=== PATIENT | male | born 1960 | race Caucasian/White ===

== ENCOUNTER 2021-03-12 07:21 | Emergency (ER) | payer MEDICAID ==
[~2021-03-12] VITALS: Ht 167.6 cm; Wt 77.1 kg
[2021-03-12 07:23] VITALS: BP 128/98
[2021-03-12] MEDS ORDERED: methylPREDNISolone SOD SUCC 125 MG/2 ML VL IM ONE (08:30)
[2021-03-12] MEDS ORDERED: EPINEPHrine HCL 1 MG/1 ML AMP SC ONE (08:45)
== END 2021-03-12 09:46 | disposition home or self-care (01) ==
LOC: ER 07:21
DX: T78.1XXA Other adverse food reactions, not elsewhere classified, initial encounter (principal); I10 Essential (primary) hypertension; X58.XXXA Exposure to other specified factors, initial encounter
CPT/HCPCS: 96372; 99284; J0171; J2930

== ENCOUNTER 2024-11-03 08:33 | Inpatient (IN) | payer MEDICAID ==
[~2024-11-03] VITALS: Ht 165.1 cm; Wt 64.0 kg
[2024-11-03] VITALS (13 sets, daily range): BP systolic 125–160; BP diastolic 70–95; PULSE 55–76; RESP 12–21; TEMP 98.2–98.3; O2SAT 95–100
[2024-11-03] MEDS: IODIXANOL 320MG/ML 100ML BTL IV ONE (08:51)
[2024-11-03] MEDS: HEPARIN SODIUM (PORCINE) 5000 UNITS/ML 1ML VIAL ONE (08:59)
[2024-11-03] MEDS ORDERED: SODIUM CHLORIDE 0.9% 1,000 ML IV ONE (09:00)
[2024-11-03] MEDS: HEPARIN SODIUM (PORCINE) 5000 UNITS/ML 1ML VIAL IV ONE (09:01)
--- NOTE | 2024-11-03 09:04 | ED.PDOC ---
HPI Comments 64 Y M with PMHX of HTN and HLD presents to the ED with CC of chest pain. Patient states, that he started experiencing sudden chest pain at 0200 this morning 11/03/24. Patient relays, that his CP is substernal and radiates to his jaw, bilateral arms, and neck. Patient smokes tobacco, denies ETOH consumption, or illicit drug use. Patient denies fever, shortness of breath, or N/V/D. Chief Complaint: Chest Pain Time Seen by MD: 08:40 Primary Care Provider: ? Reviewed Notes: Nurses Notes, Medications, Allergies Allergies: Coded Allergies: NO KNOWN ALLERGIES (Unverified , 03/12/21) Information Source: Patient Mode of Arrival: Ambulatory Severity: Moderate Timing: Hours Duration: Since onset Prehospital treatment: None Location: Substernal Radiation: Neck, Jaw, Arm (R), Arm (L) Onset: At Rest Cardiac Risk Factors: Smoker, HTN PE Risk Factors: None History of: None Associated Signs and Symptoms: None Past Medical History PAST MEDICAL HISTORY: HTN Surgical History: Denies all surgeries Family History Family History: Reviewed,noncontributory to illness Social History Smoker: Non-Smoker Lives In: Home Constitutional: denies: chills, diaphoresis, fatigue, fever, malaise, sweats, weakness, others EENTM: denies: blurred vision, double vision, ear bleeding, ear discharge, ear drainage, ear pain, ear ringing, eye pain, eye redness, hearing loss, mouth pain, mouth swelling, nasal discharge, nose bleeding, nose congestion, nose pain, photophobia, tearing, throat pain, throat swelling, voice changes, others Cardiovascular: reports: chest pain, others (HAWA Arm Pain); denies: dizzy spells, diaphoresis, Dyspnea on exertion, edema, irregular heart beat, left arm pain, lightheadedness, palpitations, PND, syncope Gastrointestinal: denies: abdomen distended, abdominal pain, blood streaked bowels, constipated, diarrhea, dysphagia, difficulty swallowing, hematemesis, melena, nausea, poor appetite, poor fluid intake, rectal bleeding, rectal pain, vomiting, others Genitourinary: denies: burning, dysuria, flank pain, frequency, hematuria, incontinence, penile discharge, penile sore, pain, testicle pain, testicle swelling, urgency, others Neurological: reports: headache; denies: dizziness, fainting, left sided numbness, left sided weakness, numbness, paresthesia, pre-existing deficit, right sided numbness, right sided weakness, seizure, speech problems, tingling, tremors, weakness, others Musculoskeletal: denies: back pain, gout, joint pain, joint swelling, muscle pain, muscle stiffness, neck pain, others Integumetry: denies: bruises, change in color, change in hair/nails, dryness, laceration, lesions, lumps, rash, wounds, others Allergic/Immunocompromised: denies: Difficulty Healing, Frequent Infections, Hives, Itching, others Hematologic/Lymphatic: denies: anemia, blood clots, easy bleeding, easy bruising, swollen glands, others Endocrine: denies: excessive hunger, excessive sweating, excessive thirst, excessive urination, flushing, intolerance to cold, intolerance to heat, unexplained weight gain, unexplained weight loss, others Psychiatric: denies: anxiety, bipolar disorder, depression, hopeless, panic disorder, schizophrenia, sleepless, suicidal, others All Other Systems: Reviewed and Negative Physical Exam General Appearance: Moderate Distress, Normal HEENT: Normal ENT Inspection, Pharynx Normal, TMs Normal Neck: Full Range of Motion, Non-Tender, Normal, Normal Inspection Respiratory: Chest Non-Tender, Lungs Clear, No Accessory Muscle Use, No Respiratory Distress, Normal Breath Sounds Cardiovascular: No Edema, No JVD, No Murmur, No Gallop, Normal Peripheral Pulses, Regular Rate/Rhythm Breast Exam: Deferred Gastrointestinal: No Organomegaly, Non Tender, No Pulsatile Mass, Normal Bowel Sounds, Soft Genitalia: Deferred Pelvic: Deferred Rectal: Deferred Extremities: No calf tenderness, Normal capillary refill, Normal inspection, Normal range of motion, Non-tender, No pedal edema Musculoskeletal : Apperance: Normal Neurologic: Alert, principal network architect II-XII nml as Tested, No Motor Deficits, Normal Affect, Normal Mood, No Sensory Deficits Cerebellar Function: NOT DONE Reflexes: NOT DONE Skin: Dry, Normal Color, Warm Peripheral Pulses: 3+ Radial (R), 3+ Radial (L) Lymphatic: No Adenopathy Was a procedure done? Was a procedure done?: No CP Differential Dx Differential Diagnosis: A-fib, A-Flutter, Angina, Anxiety / Panic Attack, Atrial Dysrhythmia, Electrolyte Disorder, CT, Other (STEMI) X-Ray, Labs, Meds, VS Vital Signs Date Time Temp Pulse Resp B/P (MAP) Pulse Ox O2 Delivery O2 Flow Rate FiO2 11/03/24 09:08 76 21 99 Room Air* 0 21 11/03/24 09:08 76 21 179/100 (126) 99 11/03/24 08:43 98.6 75 18 139/101 (114) 98 11/03/24 08:40 65 Lab Test 11/03/24 08:51 Range/Units White Blood Count 11.0 H 4.4-10.8 10^3/uL Red Blood Count 5.98 H 4.5-5.90 10^6/uL Hemoglobin 18.5 H 13.5-17.5 g/dL Hematocrit 54.6 H 41.0-53.0 % Mean Corpuscular Volume 91.3 80.0-100.0 fL Mean Corpuscular Hemoglobin 31.0 28.0-32.0 pg Mean Corpuscular Hemoglobin Concent 33.9 32.0-36.0 g/dL Red Cell Distribution Width 13.7 11.8-14.3 % Platelet Count 245 140-450 10^3/uL Mean Platelet Volume 9.0 6.9-10.8 fL Neutrophils (%) (Auto) 71.7 37.0-80.0 % Lymphocytes (%) (Auto) 19.9 10.0-50.0 % Monocytes (%) (Auto) 6.9 0.0-12.0 % Eosinophils (%) (Auto) 0.8 0.0-7.0 % Basophils (%) (Auto) 0.7 0.0-2.0 % Neutrophils # (Auto) 7.9 1.6-8.6 10 ^3/uL Lymphocytes # (Auto) 2.2 0.4-5.4 10 ^3/uL Monocytes # (Auto) 0.8 0-1.3 10 ^3/uL Eosinophils # (Auto) 0.1 0-0.8 10 ^3/uL Basophils # (Auto) 0.1 0-0.2 10 ^3/uL Nucleated Red Blood Cells 0.2 % Prothrombin Time Pending Prothrombin Time INR Pending Activated Partial Thromboplast Time Pending Sodium Level 136 136-145 mmol/L Potassium Level Pending Chloride Level 104 98-107 mmol/L Carbon Dioxide Level 27 20-31 mmol/L Anion Gap 5 5-15 Blood Urea Nitrogen Pending Creatinine 1.16 0.700-1.30 mg/dL Glomerular Filtration Rate Calc 71 >90 mL/min BUN/Creatinine Ratio Pending Serum Glucose 121 H 74-106 mg/dL Calcium Level 10.1 8.7-10.4 mg/dL Total Bilirubin 0.7 0.2-1.0 mg/dL Aspartate Amino Transferase (AST) 153 H 13-40 U/L Alanine Aminotransferase (ALT) Pending Alkaline Phosphatase 79 46-116 U/L Troponin I High Sensitivity 9077 *H </=54 ng/L Total Protein 7.9 5.7-8.2 g/dL Albumin Pending Current Medications Medications (Trade) Dose Ordered Sig/Bridgette Route Start Time Stop Time Status Last Admin Heparin Sodium (Porcine) 5,000 units ONCE ONCE IV 11/03/24 09:00 11/03/24 09:01 DC 11/03/24 09:01 [place] [id number] Ph: [phone] DIAGNOSTIC IMAGING Diagnostic Imaging Report : [id number] Signed PATIENT: SWAPNA COLUNGA ACCT: [id number] UNIT: [id number] : 1960 LOC: ER ROOM / BED: / AGE / SEX: 64 / M ADM STATUS: REG ER SERVICE ORDERING PHYSICIAN: MO BANDA MD PROCEDURE(s): CXR1 - CHEST XRAY 1 VIEW REASON: CHEST PAIN ORDER NUMBER(s): [id number], ACCESSION NUMBER(s): [id number] XY CHEST XRAY 1 VIEW, HISTORY: CHEST PAIN COMPARISON: None None TECHNICAL DATA: 1 view of the chest was obtained. FINDINGS: Lines and tubes: None Cardiomediastinal silhouette: normal Pulmonary vasculature: normal Lung expansion: low Lung airspace: normal Lung interstitium: normal Pleura: normal Pneumothorax: no Bones: Unremarkable Other: no IMPRESSION: Hypoexpanded lungs. ATED BY: PEE KAT MD DICTATED DATE/TIME: 11/03/24912 SIGNED BY: PEE KAT MD SIGNED DATE/TIME: 11/03/24 0913 CC: Patient alert. Complaining of chest pain. EKG does show STEMI. Vitals stable. Was given heparin. Cardiology consult dictation. Was taken to the senior laboratory technician. Continues to smoke cigarettes. Counseled patient on effects of smoking cigarettes. WBC slightly elevated. Hemoglobin elevated. Blood pressure elevated. Explained to the patient. Time of 1ST Reevaluation: 09:20 Reevaluation 1ST: Unchanged Patient Education/Counseling: Diagnosis, Treatment Family Education/Counseling: No Family Present Departure 1 Departure Time of Disposition: :23 Impression: Primary Impression: STEMI (ST elevation myocardial infarction) Qualified Codes: I21.3 - ST elevation (STEMI) myocardial infarction of unspecified site Disposition: ADMITTED INPATIENT Admit to: Med Surg Condition: Guarded Critical Care Note Critical Care Time?: Yes (45 min-critical care time only) Stability Stability form required: No Heart Score Heart Score: Heart Score Response (Comments) Value History Highly Suspicious [address]-Deviation 2 Age 45-64 1 Risk Factors 1 or 2 risk factors 1 Troponin N/A 0 Total 6 I personally scribed for MO BANDA MD ([email or web address]) on 11/03/24 at 09:04. Electronically submitted by Elsa Arias ([email or web address]). I personally scribed for MO BANDA MD ([email or web address]) on 11/03/24 at 09:51. Electronically submitted by Elsa Arias ([email or web address]). MO BANDA MD Nov 03, 2024 09:04
[2024-11-03 09:07] LABS: Basophils # (auto) 0.1 10 ^3/uL (0-0.2); Eosinophils # (auto) 0.1 10 ^3/uL (0-0.8); Lymphocytes # (auto) 2.2 10 ^3/uL (0.4-5.4); Monocytes # (auto) 0.8 10 ^3/uL (0-1.3); Neutrophils # (auto) 7.9 10 ^3/uL (1.6-8.6)
[2024-11-03 09:08] LABS: Basophils % (auto) 0.7 % (0.0-2.0); Eosinophils % (auto) 0.8 % (0.0-7.0); Hematocrit 54.6 % (41.0-53.0); Hemoglobin 18.5 g/dL (13.5-17.5); Lymphocytes % (auto) 19.9 % (10.0-50.0); Mean Corpuscular Hgb Conc. 33.9 g/dL (32.0-36.0); Mean Corpuscular Volume 91.3 fL (80.0-100.0); Monocytes % (auto) 6.9 % (0.0-12.0); Neutrophils % (auto) 71.7 % (37.0-80.0); Nucleated Red Blood Cells % 0.2 %; Platelet Count (auto) 245 10^3/uL (140-450); Red Blood Cells 5.98 10^6/uL (4.5-5.90); Red Cell Distribution Width 13.7 % (11.8-14.3)
[2024-11-03] MEDS: MIDAZOLAM HCL 2MG/2ML 2ml VIAL (1mg/ml) ONE (09:09)
[2024-11-03] MEDS: NITROGLYCERIN 50MG/250ML 250 ML IV ONE (09:09)
[2024-11-03] MEDS: VERAPAMIL 2.5MG/ML INJ 2ML VIAL IV ONE (09:09)
[2024-11-03] MEDS: LIDOCAINE 2%HCL (LOCAL ANESTH.) INJ 20ML MDV ONE (09:09)
[2024-11-03] MEDS: ANGIOMAX 250 MG VIAL IV ONE (09:09)
[2024-11-03] MEDS: fentaNYL CITRATE 100 MCG/2 ML VL ONE (09:09)
[2024-11-03] MEDS: SODIUM CHL 0.9% 50 ML ONE (09:09)
--- NOTE | 2024-11-03 09:15 | DVH ---
XY CHEST XRAY 1 VIEW, HISTORY: CHEST PAIN COMPARISON: None None TECHNICAL DATA: 1 view of the chest was obtained. FINDINGS: Lines and tubes: None Cardiomediastinal silhouette: normal Pulmonary vasculature: normal Lung expansion: low Lung airspace: normal Lung interstitium: normal Pleura: normal Pneumothorax: no Bones: Unremarkable Other: no IMPRESSION: Hypoexpanded lungs.
[2024-11-03 09:24] LABS: Alkaline Phosphatase 79 U/L (46-116); Anion Gap 5 (5-15); Calcium 10.1 mg/dL (8.7-10.4); Carbon Dioxide 27 mmol/L (20-31); Chloride 104 mmol/L (98-107); Sodium 136 mmol/L (136-145)
[2024-11-03 09:25] LABS: Bilirubin, Total 0.7 mg/dL (0.2-1.0); Total Protein 7.9 g/dL (5.7-8.2)
[2024-11-03 09:41] LABS: Aspartate Aminotransferase 153 U/L (13-40); Glucose 121 mg/dL (74-106)
--- NOTE | 2024-11-03 10:13 | DVHINCON2 ---
Date of service: Nov 03, 2024 History of Present Illness 64 yo M with HTN, HL, tobacco came in for crushing chest pain since 2AM. he denies a hx of cad or chf. ER MD sent me ecg and i told him to call code stemi f or anterior wall [place] with septal infarct. pt seen STAT in ER with team . pt chest pain improved with EMS Past Medical History reviewed Allergies: Coded Allergies: NO KNOWN ALLERGIES (Unverified , 03/12/21) Review of Systems +chest pain +sob +nausea +diaphoresis Vital Signs Vital Signs Date Time Temp Pulse Resp B/P (MAP) Pulse Ox O2 Delivery O2 Flow Rate FiO2 11/03/24 09:08 76 21 99 Room Air* 0 21 11/03/24 09:08 179/100 (126) 11/03/24 08:43 98.6 Physical Exam no severe distress nad s1 s2 rrr ctab soft nt/nd no edema Labs/Diagnostic Data Labs Test 11/03/24 08:51 Range/Units White Blood Count 11.0 H 4.4-10.8 10^3/uL Red Blood Count 5.98 H 4.5-5.90 10^6/uL Hemoglobin 18.5 H 13.5-17.5 g/dL Hematocrit 54.6 H 41.0-53.0 % Mean Corpuscular Volume 91.3 80.0-100.0 fL Mean Corpuscular Hemoglobin 31.0 28.0-32.0 pg Mean Corpuscular Hemoglobin Concent 33.9 32.0-36.0 g/dL Red Cell Distribution Width 13.7 11.8-14.3 % Platelet Count 245 140-450 10^3/uL Mean Platelet Volume 9.0 6.9-10.8 fL Neutrophils (%) (Auto) 71.7 37.0-80.0 % Lymphocytes (%) (Auto) 19.9 10.0-50.0 % Monocytes (%) (Auto) 6.9 0.0-12.0 % Eosinophils (%) (Auto) 0.8 0.0-7.0 % Basophils (%) (Auto) 0.7 0.0-2.0 % Neutrophils # (Auto) 7.9 1.6-8.6 10 ^3/uL Lymphocytes # (Auto) 2.2 0.4-5.4 10 ^3/uL Monocytes # (Auto) 0.8 0-1.3 10 ^3/uL Eosinophils # (Auto) 0.1 0-0.8 10 ^3/uL Basophils # (Auto) 0.1 0-0.2 10 ^3/uL Nucleated Red Blood Cells 0.2 % Sodium Level 136 136-145 mmol/L Chloride Level 104 98-107 mmol/L Carbon Dioxide Level 27 20-31 mmol/L Anion Gap 5 5-15 Creatinine 1.16 0.700-1.30 mg/dL Glomerular Filtration Rate Calc 71 >90 mL/min Serum Glucose 121 H 74-106 mg/dL Calcium Level 10.1 8.7-10.4 mg/dL Total Bilirubin 0.7 0.2-1.0 mg/dL Aspartate Amino Transferase (AST) 153 H 13-40 U/L Alkaline Phosphatase 79 46-116 U/L Troponin I High Sensitivity 9077 *H </=54 ng/L Total Protein 7.9 5.7-8.2 g/dL Assessment anterior stemi HTN HL tobacco Plan/Recommendation informed consent obtained pt at highest risk for cv complications given acuity of presentation admit to icu check echo heparin given by ER asa furthere recs to follow 90 mins critical care time spent Plan discussed with: Patient SUAD TAVERA MD Nov 03, 2024 10:13
[2024-11-03] MEDS: ONDANSETRON HCL 4 MG/2 ML VIAL ONE (10:20)
[2024-11-03] MEDS: TICAGRELOR 90 MG TAB ONE (10:20)
[2024-11-03 10:25] LABS: INR 1.09 (0.9-1.15); Partial Thromboplastin Time 28.2 SEC (24.5-34.5); Prothrombin Time 11.5 sec (9.3-11.8)
--- NOTE | 2024-11-03 10:37 | DVHOP ---
DATE OF SURGERY: 11/03/2024 PREOPERATIVE DIAGNOSIS: Anterior STEMI. POSTOPERATIVE DIAGNOSIS: Anterior STEMI. PROCEDURES PERFORMED: * Coronary angiogram, left heart catheterization, iliofemoral angiogram, hemostasis closure device. Conscious sedation administration. Supervision less than 15 minutes as well as 15-30 minutes as well as 30-45 minutes. Hemostasis closure device placement. * PTCA single vessel, PCI single vessel, acute VT intervention. DESCRIPTION OF PROCEDURE: The patient signed informed consent, understanding risks and benefits, and alternatives of the procedure, he wished to proceed. He was brought to the [facility] urgently in n.p.o. state. He was prepped in sterile fashion. The patient had no radial pulse. I gave 1 mL of 2% lidocaine to his right wrist. I was able to cannulate the right radial artery with one stick despite having a pulse and I placed a 6-Sudanese Glidesheath Slender. Next, an intra-arterial spasmolytic was administered. I had very sluggish flow throughout that radial artery and I was concerned that he had severe spasm already from the beginning the procedure before starting the procedure and therefore took a 5-[place]anese [place] catheter for coronary angiogram. FINDINGS: * Left main: Large left main bifurcates into LAD and circumflex. There is distal left main about 20-30% stenosis. * Circumflex: Circumflex proximally is patent with mild plaque in the mid circumflex. There is about 20-30% stenosis. * LAD: LAD in the true ostium is completely occluded with KAYLEY 0 flow. Then, there is a 99% lesion in the ostium to proximal portion prior to complete occlusion. There is a diagonal that comes off laterally. This diagonal does have a 60-70% proximal stenosis. * RCA: RCA is a moderately large vessel. It is dominant. Proximally is patent. The mid RCA has a 50% stenosis. The distal RCA has about a 50-60% stenosis, giving off a PDA and PL branch. There are already some collateral flows going towards the LAD. INTERVENTION: At this point, I tried to use an XB 3.5, but there was so much spasm into the elbow despite sedation I had to abandon the radial approach and therefore I had to turn my attention to the right groin. I gave 8 mL of 2% lidocaine to his right groin with antegrade flow wall puncture. I cannulated the right common femoral artery with one stick and placed a 6-Sudanese sheath. Then, I took an XB 3.5 guide and intubated the left main. Angiomax bolus and drip had been initiated at this point. I brought an 0.14 x 190 cm BMW wire, but I was unable to cross this complete occlusion, which appeared to have extreme fibrotic tissue within it and extensive thrombus. Therefore, I took a Whisper wire 0.14 and I crossed to the distal to apical LAD. I took multiple inflations with a 2.5 x 10 mm balloon, improving the flow now down to KAYLEY 2 flow. Now, there was a severe stenosis in the proximal to ostial LAD. I took a 2.5 x 20 mm balloon with an NC balloon and performed balloon angioplasty into the proximal LAD, now had KAYLEY 3 flow. The apical LAD was very small and atretic. It is barely a 1 mm vessel, very suspicious for completely extensive infarct in the anterior wall. I rewired into the distal LAD with ease at this point, and I decided for a 2-stent strategy as the vessels were very different sizes into the ostium and into the proximal. I used a 2.5 x 18 mm stent, [place]. I crossed the mid lesion and I inflated this up to 16 atmospheres with 2 separate inflations lasting 15 seconds. Then, I removed the stent balloon and I decided to bring a 3.0 x 15 mm stent. The stent was positioned with about 2-3 mm overlap into the mid stent and into the proximal LAD safely away from the left main and circumflex. This was going to longterm the very early takeoff diagonal. This diagonal 1 has ostial plaque and moderate disease to begin with. I deployed the stent up to 16 atmospheres with 2 separate inflations, each lasting 15 seconds. Then, I took that stent balloon, 3.0 balloon, and performed balloon angioplasty to the distal stent as well up to 6 atmospheres. Then, I removed the balloon. I did give a dose of intracoronary nitroglycerin. An angiogram was performed showing 0% stenosis and excellent flow throughout the LAD. The ostial diagonal 2 does have some residual thrombus within it, but excellent flow throughout as well as the moderately large diagonal 1. At this point, the patient was hemodynamically stable with heart rate about 46. All guides and wires were removed. Iliofemoral angiogram was performed showing appropriate arteriotomy site and 6-Sudanese Angio-Seal was delivered for closure. There were no immediate complications. CONCLUSION: Successful PTCA and PCI of a subacutely occluded 100% extensive ostial LAD, massive anterior wall infarct and placement of 2 drug-eluting stents. PLAN: * Dual antiplatelet therapy. * Admit to ICU NATHEN. * Check 2D echo. * Initiate statin therapy and heart failure therapy as deemed appropriate. Sal Johnson MD CM/DEN TID: [id number] RECEIPT: [id number]
[2024-11-03 11:43] LABS: BUN/Creatinine Ratio 10.3 (10.0-20.0)
[2024-11-03 11:45] LABS: Alanine Aminotransferase 39 U/L (7-40); Blood Urea Nitrogen 12 mg/dL (9-23)
--- NOTE | 2024-11-03 11:45 | DVHSR ---
APPROVED REPORT EXAM: Two-dimensional and M-mode echocardiogram with Doppler and color Doppler. Blood Pressure: 179/100 mmHg INDICATION Anterior wall STEMI, extensive infarct RISK FACTORS Height: 65, Weight: 165 DIMENSIONS LVDd4.6 (3.8-5.7cm)LA (2D)3.6 (1.9-4.0cm)Aortic Root3.5 (2.0-3.7cm) LVDs3.6 (2.5-4.0cm)LA (MM) (1.9-4.0cm)Aortic Cusp Exc1.4 (1.5-2.0cm) EF (%) 45.0 (55-70%)Rt. Atrium3.7 (1.9-4.0cm)Asc. Aorta cm IVSd1.1 (0.7-1.1cm)RV (D) (1.8-2.4cm) PWd1.2 (0.7-1.1cm) Mitral Valve MitralMitral Stenosis E wave0.66m/sMV Mean GR.mmHg A wave1.00m/sMV Peak GR.mmHg E/A ratio0.72D MVAcm2 DECEL [id number] 1/2 [id number] IVRTmsDop MVA1.72cm2 Aortic Valve Aortic ValveAortic Stenosis V10.94m/Nedra Mean GR.4mmHg V21.39m/Nedra Peak GR.8mmHg LVOT Diameter1.8 (1.8-2.4cm)Doppler AVA1.72cm2 Pulmonic Valve V20.81m/s Tricuspid Valve TR Velocity2.00m/s [id number] Conclusion lvef 30% by visual estimate akinetic apex and anteroseputm septal hypertrophy with septal bowing left atrium enlarged normal rv function pericardial fat pad present no severe valve abnormalities noted
--- NOTE | 2024-11-03 13:05 | ECG ---
[facility] Test Date: 2024-11-03 Test Time: 08:40:15 Pat Name: SWANPA COLUNGA Department: ER Room: 0286T Gender: M Piling Setter: JIM : 1960 Requested By: MO BANDA Order Number: [id number] Reading MD: Sheng Lopez Measurements Intervals Amonate Rate: 65 P: 64 PA: 142 QRS: -65 QRSD: 101 T: 64 QT: 393 QTc: 409 Interpretive Statements Sinus rhythm Left anterior fascicular block Anterior infarct, acute (LAD) Baseline wander in lead(s) V2 Electronically Signed On 11-04-2024 18:22:36 PST by Sheng Lopez Please click the below link to view image of tracing.
[2024-11-03] MEDS: ATORVASTATIN 20 MG TAB PO SCH (13:46)
[2024-11-03] MEDS: CARVEDILOL 3.125 MG TAB PO ONE (13:46)
[2024-11-03] MEDS: CLOPIDOGREL BISULFATE 75 MG TAB PO ONE (17:57)
[2024-11-04] VITALS (8 sets, daily range): BP systolic 99–141; BP diastolic 50–85; PULSE 56–72; RESP 12–18; TEMP 97.9–98.8; O2SAT 94–98
[2024-11-04] MEDS ORDERED: SACUBITRIL-VALSARTAN 24mg/26mg TAB PO SCH (08:00)
[2024-11-04] MEDS: CLOPIDOGREL BISULFATE 75 MG TAB PO SCH (10:06)
[2024-11-04] MEDS: SACUBITRIL-VALSARTAN 24mg/26mg TAB PO SCH (10:06)
--- NOTE | 2024-11-04 13:21 | DVHPN2 ---
Progress Note Date Seen: Nov 05, 2024 Medical Necessity Reason Pt with a Central, PICC or Fol: No Subjective Patient reports: Feels better Other Systems: sp pci Objective vital signs Vital Sign Date Time Temp Pulse Resp B/P (MAP) Pulse Ox O2 Delivery O2 Flow Rate FiO2 11/04/24 12:52 97.9 56 16 99/50 (66) 97 97.9 11/03/24 20:00 Room Air* 0 21 Total Intake and Output 11/03/24 11/03/24 11/04/24 15:00 23:00 07:00 Intake Total 480 ml 300 ml Balance 480 ml 300 ml medications Current Medications Medications Dose Ordered Sig/Bridgette Route Start Time Stop Time Status Last Admin Dose Admin Clopidogrel Bisulfate 75 mg DAILY PO 11/04/24 10:00 11/04/24 10:06 75 MG Atorvastatin Calcium 80 mg DAILY PO 11/03/24 12:00 11/04/24 10:06 80 MG Sacubitril/ Valsartan 1 tab BID PO 11/04/24 10:00 11/04/24 10:06 1 TAB Aspirin 81 mg DAILY PO 11/04/24 12:45 Examination: GENERAL:Abnormal, HEENT:Abnormal, LUNGS:Abnormal, CVS:Abnormal, ABDOMEN:Abnormal laboratory and microbiology Laboratory Tests 11/03/24 12:00 11/03/24 08:51 Test 11/03/24 08:51 Range/Units Serum Glucose 121 H 74-106 mg/dL Problem List/Assessment/Plan Problem List/Assessment/Plan anterior wall stemi new onset CHF HTN tobacco HL cont dapt start BB start entresto diruetics prn cont tele Plan discussed with: Patient My Orders My Orders Orders - SUAD TAVERA MD Procedure Category Date Status Time Sacubitril-Valsartan PHA 11/04/24 In Process (Entresto 24-26 Mg 10:00 Aspirin Tablet PHA 11/04/24 In Process 12:45 Bilat Low Ext Art US 11/04/24 Taken Duplex 12:32 Date of Service: Nov 05, 2024 Billing Provider: SUAD TAVERA MD Common Visit Codes: NOT BILLABLE SUAD TAVERA MD Nov 04, 2024 13:21
[2024-11-04] MEDS: ASPirin 81 mg TAB PO SCH (13:30)
--- NOTE | 2024-11-04 13:31 | DVH ---
LOWER EXTREMITY ARTERIAL DOPPLER EXAM CLINICAL HISTORY: LEG SWELLING TECHNIQUE: Bilateral lower extremity arterial Doppler ultrasound evaluation. COMPARISON: None FINDINGS: There are predominantly triphasic waveforms throughout the lower extremity arteries. There is no foca l vessel occlusion. The peak systolic velocities are within normal limits. No significant flow-limiti ng atheromatous plaque formation is seen. IMPRESSION: 1. No hemodynamically significant stenosis in the lower extremity arteries. HS:Y
--- NOTE | 2024-11-04 14:54 | DVH ---
CHEST RADIOGRAPH Indication: stemi, chf Technique: Single frontal view of the chest was obtained Comparison: XY CHEST XRAY 1 VIEW on DOS: 11/03/24 FINDINGS: Lines and Tubes: None Lungs: No focal consolidation. Pleura: No effusion. No pneumothorax. Cardiomediastinal contours: Unremarkable Bones: No acute osseous abnormality. IMPRESSION: 1. No acute cardiopulmonary disease.
--- NOTE | 2024-11-04 15:26 | DVHPN2 ---
Subjective Patient reporting sciatica type pain to his left lower extremity Reviewed: Care Plan, H&P, Labs, Medications Changes from previous H/P or p: No Changes General: Per HPI Objective Vitals Vital Signs Date Time Temp Pulse Resp B/P (MAP) Pulse Ox O2 Delivery O2 Flow Rate FiO2 11/04/24 12:52 97.9 56 16 99/50 (66) 97 97.9 11/04/24 08:00 Room Air* 0 21 Intake/Output Intake and Output 11/04/24 07:00 Intake Total 780 ml Balance 780 ml Intake Oral 780 ml # Voids 3 General Appearance: Alert, Oriented X3, Cooperative, mild distress HEENT: Atraumatic, PERRLA Lungs: Clear to auscultation, Normal air movement Cardiovascular: Normal S1, Normal S2 Abdomen: Normal bowel sounds, Soft, No tenderness Musculoskeletal: Normal sensory function, Normal motor function Neuro: Normal gait, Normal speech, Strength at 5/5 X4 ext, Sensation intact, C ranial nerves 3-12 NL Skin: Dry, Intact Psych/Mental Status: Mental status NL, Mood NL Medications Current Medications Medications Dose Ordered Sig/Bridgette Route Start Time Stop Time Status Last Admin Dose Admin Clopidogrel Bisulfate 75 mg DAILY PO 11/04/24 10:00 11/04/24 10:06 75 MG Atorvastatin Calcium 80 mg DAILY PO 11/03/24 12:00 11/04/24 10:06 80 MG Sacubitril/ Valsartan 1 tab BID PO 11/04/24 10:00 11/04/24 10:06 1 TAB Aspirin 81 mg DAILY PO 11/04/24 12:45 Laboratory Results Laboratory Tests 11/03/24 08:51 11/03/24 12:00 Labs and/or images reviewed: Labs reviewed by me, Image(s) reviewed by me Assessment/Plan Assessment/Plan Impression: -STEMI involving LAD, status post PTCA and stent placement -dyslipidemia -primary hypertension -sciatic pain Plan: -continue dual antiplatelet therapy with aspirin and Plavix -continue statin, check lipid panel -hold beta-estee given heart rate in the low 60s. Continue Entresto -chest x-ray from today reviewed. No CHF. Hold Lasix at this time given note no sign of volume overload -discussed case with Cardiology, plan for DC tomorrow -trial of gabapentin Total time spent with patient discussing and formulating plan of care: 35 minutes. This medical document was created using an electronic medical record system with [employer] dictation system. Although this document has been carefully reviewed, there may still be some phonetic and typographical errors. These areas are purely typographical due to imperfections of the software programs, and do not reflect any compromise in the patient's medical care. Plan discussed with: Patient, Other (RN) My Orders Orders - CARROLL MAGANA NP Procedure Category Date Status Time Complete Blood Count LAB 11/04/24 Logged 13:05 Basic Metabolic Panel LAB 11/04/24 Logged 13:05 Magnesium LAB 11/04/24 Logged 13:05 Lipid Panel LAB 11/04/24 Logged 13:05 Chest Xray 1 View XY 11/04/24 Resulted 13:05 Date of Service: Nov 04, 2024 Billing Provider: CARROLL MAGANA NP Common Visit Codes: 49047-QXL/OBS DISCH DAY >30min CARROLL MAGANA NP Nov 04, 2024 15:26
[2024-11-04 16:09] LABS: Basophils # (auto) 0 10 ^3/uL (0-0.2); Basophils % (auto) 0.4 % (0.0-2.0); Eosinophils # (auto) 0.2 10 ^3/uL (0-0.8); Hematocrit 48.2 % (41.0-53.0); Hemoglobin 16.5 g/dL (13.5-17.5); Lymphocytes # (auto) 2.7 10 ^3/uL (0.4-5.4); Lymphocytes % (auto) 24.2 % (10.0-50.0); Mean Corpuscular Hemoglobin 31.3 pg (28.0-32.0); Mean Corpuscular Hgb Conc. 34.3 g/dL (32.0-36.0); Mean Corpuscular Volume 91.3 fL (80.0-100.0); Monocytes # (auto) 1.3 10 ^3/uL (0-1.3); Monocytes % (auto) 11.6 % (0.0-12.0); Neutrophils # (auto) 6.8 10 ^3/uL (1.6-8.6); Neutrophils % (auto) 61.8 % (37.0-80.0); Nucleated Red Blood Cells % 0.2 %; Platelet Count (auto) 216 10^3/uL (140-450); Red Blood Cells 5.28 10^6/uL (4.5-5.90); Red Cell Distribution Width 13.6 % (11.8-14.3)
[2024-11-04 16:18] LABS: Anion Gap 9 (5-15); Carbon Dioxide 27 mmol/L (20-31); Chloride 103 mmol/L (98-107); Potassium 4.6 mmol/L (3.5-5.1); Sodium 139 mmol/L (136-145)
[2024-11-04 16:19] LABS: Calcium 10.1 mg/dL (8.7-10.4)
[2024-11-04 16:23] LABS: Glucose 99 mg/dL (74-106)
[2024-11-04 16:24] LABS: BUN/Creatinine Ratio 12.5 (10.0-20.0); Blood Urea Nitrogen 16 mg/dL (9-23)
[2024-11-04 16:26] LABS: Cholesterol 146 mg/dL (< 200)
[2024-11-04 16:28] LABS: HDL Cholesterol 31 mg/dL (40-59); LDL Cholesterol 102 mg/dL (< 100); Triglycerides 157 mg/dL (< 150)
[2024-11-04] MEDS: GABAPENTIN 100 MG CAP PO SCH (18:23)
[2024-11-05] VITALS (7 sets, daily range): BP systolic 108–129; BP diastolic 57–82; PULSE 59–92; RESP 12–20; TEMP 97.9–98; O2SAT 96–100
[2024-11-05] MEDS ORDERED: SACU1TAB PO (11:26)
[2024-11-05] MEDS ORDERED: ASPI-325 PO (11:26)
[2024-11-05] MEDS ORDERED: CLOP75TA70 PO (11:26)
[2024-11-05] MEDS ORDERED: GAB100C PO (11:26)
[2024-11-05] MEDS ORDERED: LOSA25TA5 PO (14:07)
--- NOTE | 2024-11-05 14:12 | DVHDS2 ---
Discharge Summary Date of Admission Nov 03, 2024 at 12:23 Date of Discharge: Nov 05, 2024 Admitting Diagnosis STEMI involving LAD Labs/Diagnostic Data: Laboratory Results Test 11/04/24 15:35 11/03/24 08:51 White Blood Count 11.0 10^3/uL (4.4-10.8) Red Blood Count 5.28 10^6/uL (4.5-5.90) Hemoglobin 16.5 g/dL (13.5-17.5) Hematocrit 48.2 % (41.0-53.0) Mean Corpuscular Volume 91.3 fL (80.0-100.0) Mean Corpuscular Hemoglobin 31.3 pg (28.0-32.0) Mean Corpuscular Hemoglobin Concent 34.3 g/dL (32.0-36.0) Red Cell Distribution Width 13.6 % (11.8-14.3) Platelet Count 216 10^3/uL (140-450) Mean Platelet Volume 8.9 fL (6.9-10.8) Neutrophils (%) (Auto) 61.8 % (37.0-80.0) Lymphocytes (%) (Auto) 24.2 % (10.0-50.0) Monocytes (%) (Auto) 11.6 % (0.0-12.0) Eosinophils (%) (Auto) 2.0 % (0.0-7.0) Basophils (%) (Auto) 0.4 % (0.0-2.0) Neutrophils # (Auto) 6.8 10 ^3/uL (1.6-8.6) Lymphocytes # (Auto) 2.7 10 ^3/uL (0.4-5.4) Monocytes # (Auto) 1.3 10 ^3/uL (0-1.3) Eosinophils # (Auto) 0.2 10 ^3/uL (0-0.8) Basophils # (Auto) 0 10 ^3/uL (0-0.2) Nucleated Red Blood Cells 0.2 % Sodium Level 139 mmol/L (136-145) Potassium Level 4.6 mmol/L (3.5-5.1) Chloride Level 103 mmol/L (98-107) Carbon Dioxide Level 27 mmol/L (20-31) Anion Gap 9 (5-15) Blood Urea Nitrogen 16 mg/dL (9-23) Creatinine 1.28 mg/dL (0.700-1.30) Glomerular Filtration Rate Calc 63 mL/min (>90) BUN/Creatinine Ratio 12.5 (10.0-20.0) Serum Glucose 99 mg/dL (74-106) Calcium Level 10.1 mg/dL (8.7-10.4) Magnesium Level 2.0 mg/dL (1.6-2.6) Triglycerides Level 157 mg/dL (< 150) Cholesterol Level 146 mg/dL (< 200) LDL Cholesterol 102 mg/dL (< 100) HDL Cholesterol 31 mg/dL (40-59) Prothrombin Time 11.5 sec (9.3-11.8) Prothrombin Time INR 1.09 (0.9-1.15) Activated Partial Thromboplast Time 28.2 SEC (24.5-34.5) Total Bilirubin 0.7 mg/dL (0.2-1.0) Aspartate Amino Transferase (AST) 153 U/L (13-40) Alanine Aminotransferase (ALT) 39 U/L (7-40) Alkaline Phosphatase 79 U/L (46-116) Troponin I High Sensitivity 9077 ng/L (</=54) Total Protein 7.9 g/dL (5.7-8.2) Albumin 5.0 g/dL (3.2-4.8) Other Laboratory Tests 11/04/24 15:35 Brief Hx & Hospital Course: HPI Comments 64 Y M with PMHX of HTN and HLD presents to the ED with CC of chest pain. Patient states, that he started experiencing sudden chest pain at 0200 this morning 11/03/24. Patient relays, that his CP is substernal and radiates to his jaw, bilateral arms, and neck. Patient smokes tobacco, denies ETOH consumption, or illicit drug use. Patient denies fever, shortness of breath, or N/V/D. Course of hospitalization: Patient was found to have STEMI. Patient went to cardiac catheterization lab with findings of occluded ostial LAD. Patient underwent PTCA and stent placement. Patient was then placed on dual antiplatelet therapy. Post operatively, the patient has had no complications with vital signs being normal. Beta-estee therapy was held secondary to heart rate ranging around 60 beats per minute. Patient was started on Entresto while in the hospital, for which the patient tolerated. Lipid panel was also performed which he was found to be elevated, with the patient already on rosuvastatin at home, transitioned to atorvastatin while in the hospital. Patient also reported having sciatic type pain to his left lower extremity, which did improve after initiating gabapentin 200 mg p.o. t.i.d.. Patient has been cleared for discharge home. He will follow up with Cardiology, Dr. Johnson in 1-2 weeks. He will be continued on dual antiplatelet therapy with Plavix and aspirin. Due to insurance reasons, Entresto is not covered at this time, for which patient will be placed on Cozaar at the time of discharge. He will continue lovastatin, as well as previously mentioned gabapentin dosage. Smoking cessation education was given to the patient, 15 minutes spent. He was agreeable with discharge plan. All questions answered. Physical examination General: Alert and Oriented x3. No acute distress. Well-nourished. Eyes: EOMI. Anicteric. HENT: Moist mucous membranes. Lungs: Clear to auscultation bilaterally. No accessory muscle use. Cardiovascular: Regular rate and rhythm. No murmur. No JVD. Abdomen: Soft, non-tender and non-distended. No palpable masses. Extremities: No edema. Non-tender. Skin: No rashes or lesions. Warm. Neurologic: No focal neurological deficits. CN II-XII grossly intact, but not individually tested. Psychiatric: Cooperative. Appropriate mood and affect. Total time spent with patient discussing and formulating plan of care: 35 minutes. This medical document was created using an electronic medical record system with [employer] dictation system. Although this document has been carefully reviewed, there may still be some phonetic and typographical errors. These areas are purely typographical due to imperfections of the software programs, and do not reflect any compromise in the patient's medical care. Consults/Reason for consult Cardiology: STEMI Operations or Procedures 11/03/2024: PTCA and stent placement to LAD Condition at Discharge: Fair Final Diagnosis/Problems List STEMI Secondary Diagnosis: -dyslipidemia -primary hypertension -sciatic pain -nicotine dependence Discharge Disposition: Home Discharge Instruct/Medications Diet: Cardiac 2g Na,low cholest Activity: Light activity Medications: asa 81mg po daily Plavix 75mg po daily Cozaar 50 mg p.o. daily Gabapentin 200mg po BID Hold BB- HR 60 36 Discharge Statement: "Patient was advised to return to the ER or call 911 if any headaches, dizziness, shortness of breath, chest pain, abdominal pain, bleeding, fevers, or worsening of medical condition. Patient was counseled about treatment plan, medications, possible side effects, patientverbalized understanding. All questions were answered to the best of my ability. This discharge took greater then 30 minutes in planning, reviewing documentation, counseling the patient, and discussing with other team members." ASSESSMENT ASSESSMENT Assessment STEMI Date of Service: Nov 05, 2024 Billing Provider: CARROLL MAGANA NP Common Visit Codes: 62465-IXI/OBS DISCH DAY >30min CARROLL MAGANA NP Nov 05, 2024 14:12
== END 2024-11-05 16:36 | disposition home or self-care (01) | DRG 174 ==
LOC: ER 08:33 → OVERFLOW 12:23 → TELE 14:03 → TELE-WESTW 14:20
PROVIDERS: ADMIT Nurse Practitioner Acute Care; ATTEND Nurse Practitioner Acute Care
PROC: 027035Z Dilation of Coronary Artery, One Artery with Two Drug-eluting Intraluminal Devices, Percutaneous Approach (ICD-10-PCS; principal; 2024-11-03)
PROC: 4A023N7 Measurement of Cardiac Sampling and Pressure, Left Heart, Percutaneous Approach (ICD-10-PCS; 2024-11-03)
PROC: B211YZZ Fluoroscopy of Multiple Coronary Arteries using Other Contrast (ICD-10-PCS; 2024-11-03)
PROC: B41FYZZ Fluoroscopy of Right Lower Extremity Arteries using Other Contrast (ICD-10-PCS; 2024-11-03)
DX: I21.02 ST elevation (STEMI) myocardial infarction involving left anterior descending coronary artery (principal); I11.0 Hypertensive heart disease with heart failure; I50.9 Heart failure, unspecified; E78.5 Hyperlipidemia, unspecified; I25.10 Atherosclerotic heart disease of native coronary artery without angina pectoris; M54.30 Sciatica, unspecified side; F17.210 Nicotine dependence, cigarettes, uncomplicated
CPT/HCPCS: 36415; 71045; 75710; 80048; 80053; 80061; 83735; 84132; 84484; 85025; 85610; 85730; 92928; 93005; 93306; 93458; 93925; 96374; 99152; 99291; C1874; G0378; J2250; J2405; Q9967